=== PATIENT | female | born 1955 | race Caucasian/White ===

== ENCOUNTER 2024-06-16 09:38 | Outpatient (CLI) | payer MEDICARE | END 2024-06-16 23:59 | disposition home or self-care (01) | LOC: MRI02 09:38 | PROVIDERS: ATTEND Pediatrics Sports Medicine | DX: M19.011 Primary osteoarthritis, right shoulder (principal); M25.411 Effusion, right shoulder; M25.711 Osteophyte, right shoulder; M65.811 Other synovitis and tenosynovitis, right shoulder; M67.813 Other specified disorders of tendon, right shoulder; M25.511 Pain in right shoulder; M54.2 Cervicalgia | CPT/HCPCS: 73221 ==